=== PATIENT | female | born 1965 | race Caucasian/White ===

== ENCOUNTER 2017-09-17 05:30 | Day surgery (SDC) | payer BC, OTHER ==
[~2017-09-17] VITALS: Ht 165.1 cm; Wt 72.6 kg
[~2017-09-17 05:30] MED LIST: EFFEXOR XR75 MG PO; NORCO 5-325 TA1 EACH PO; NORCO 7.5-3251 EACH PO; TOPROL XL25 MG PO
--- NOTE | 2017-09-17 10:17 | NUR ---
09/17/17 1016 Jen Zhang 0945-PATIENT ARRIVED TO PACU ON 10L MASK O2 SAT 100% NONAROUSABLE ORAL AIRWAY IN PLACE. RN NEEDING TO JAW THRUST TO MAINTAIN OPEN AIRWAY. 1000-PATIENT OPENING EYES. ABLE TO MAINTAIN AIRWAY ORAL AIRWAY REMOVED. 10L M O2 SAT 100%. 3 LAP SITES TO ABDOMEN CDI. ABURTO CATHETER IN PLACE. 1010-PATIENT WEANED TO 6L MASK O2 SAT 100%.
--- NOTE | 2017-09-17 10:52 | NUR ---
PT IS BACK TO DS FROM PACU. PT'S SIGNIFICANT OTHER IS AT THE BEDSIDE. PT REPROTS NO NAUSEA, BUT DOES HAVE PAIN 7/10. SHE REPORTS THE FEELING OF NEEDING TO PEE, SHE KNOWS SHE HAS A CATHETER. NO OTHER C/O'S AT THIS TIME. WILL REASSESS WITHIN THE HOUR. WATER AND CRACKERS AT THE BEDSIDE. CALL LIGHT WITHIN REACH.
[2017-09-17] MEDS ORDERED: IBUPROFEN800 MG PO (11:12)
[2017-09-17] MEDS ORDERED: PERCOCET 5-3251 EACH PO (11:12)
--- NOTE | 2017-09-17 11:52 | NUR ---
PT IS ASLEEP UPON ENTERING THE ROOM. SHE IS ABLE TO WAKE UP AND ANSWER QUESTIONS AND QUICKLY FALLS BACK TO SLEEP. CALL LIGHT WITHIN REACH. SIGNIFICANT OTHER AT THE BEDSIDE. SHE BEEN TOLERATING CRACKERS AND SIPS OF WATER. NO OTHER C/O'S AT THIS TIME. WILL RESSESS WITHIN THE HOUR.
--- NOTE | 2017-09-17 12:50 | NUR ---
PT IS ABLE TO STAND UP AT THE BEDSIDE TO HAVE CATHETER REMOVED. 10CC IS REMOVED FROM ABURTO BALOON, THERE IS 1200ML OF BRIGHT YELLOW URINE IN ABURTO BAG. PT DENIES ANY PAIN WITH REMOVAL. SHE ASKS FROM MORE HARISH CRACKERS, SHE IS ASKED IF SHE WOULD LIKE SOMETHING MORE TO EAT AND SHE REQUESTS CHICKEN NOODLE SOUP AND A GRILLED CHEESE SANDWICH. NO OTHER C/O'S AT THIS TIME.
--- NOTE | 2017-09-17 13:47 | NUR ---
PT HAS FAMILY AT THE BEDSIDE. SHE TOLERATED LUNCH WELL WITHOUT ISSUES. SHE IS C/O THE TIP OF HER TONGUE BEING NUMB. NO C/O'S PAIN OR NAUSEA. CALL LIGHT WITHIN REACH. WILL REASSESS WITHIN THE HOUR.
--- NOTE | 2017-09-17 14:12 | NUR ---
LE 1350: PT UP OOB WITH STANDBY ASSIST TO THE BATHROOM. PT IS ABLE TO VOID 100ML OF BRIGHT YELLOW URINE. SHE IS HELPED BACK TO BED. AT THIS POINT THE PT HAS MET DISCHARGE CRITERIA AND SHE IS ASKED IF SHE FEELS LIKE SHE IS READY TO GO HOME, SHE IS EXCITED AT THIS IDEA AND REQUESTS TO GO HOME. DC INSTRUCTIONS ARE GIVEN AND SHE VERBALIZES UNDERSTANDING.
--- NOTE | 2017-09-18 11:07 | OR ---
[facility] [address], [place] [address] Signed DATE OF OPERATION: 09/17/2017 SURGEON: Jerzy Gonzales MD PRIMARY CARE PHYSICIAN: Phil Steele DO PREOPERATIVE DIAGNOSES: Uterine fibroids and pelvic pain. POSTOPERATIVE DIAGNOSES: Uterine fibroids and pelvic pain. PROCEDURES: Total laparoscopic hysterectomy with bilateral salpingectomy and cystoscopy. SURGEON: Jerzy Gonzales MD. SAUSAGE MAKER: Dr. Rubio. ANESTHESIA: General. ESTIMATED BLOOD LOSS: 75 mL. SPECIMEN: Uterus, both fallopian tubes. DRAINS: Christine to bladder. FINDINGS: Cervix: Large thick closed. Uterus: Enlarged, mostly in AP direction with uterine cavity sounded to 9 cm. There was a large subserosal fundal fibroid approximately 7 cm in diameter at the end of the uterus. The left tube was slightly adherent to the left pelvic sidewall near the fimbriated end. Otherwise normal. The left ovary was normal size and shape without any evidence of endometriosis or adhesions. The right tube was normal length and normal pink fimbriated end and no adhesions. The right ovary was normal in size and shape without any evidence of endometriosis or adhesions. The anterior cul-de-sac was free of any adhesions or masses. Posterior cul-de-sac was free of any adhesions or masses. DESCRIPTION: The patient was brought to the operating room, placed in supine position. After adequate general anesthesia was obtained, she was placed in dorsal lithotomy position, prepped and draped in usual sterile fashion. A Christine catheter was placed in the bladder, a weighted speculum was placed in the vagina and the anterior lip of cervix grasped with a long Allis clamp. Uterine cavity was sounded to 9 cm and then the Gliknikare uterine manipulator Electronically Signed By: JERZY GONZALES MD 09/18/17 1107 PATIENT NAME: DEE STEELE OPERATIVE REPORT DATE OF : 65 PHYSICIAN: JERZY GONZALES MD REPORT #: [id number] REPORT IS CONFIDENTIAL AND NOT TO BE RELEASED WITHOUT AUTHORIZATION [facility] [address], [place] [address] Signed carefully introduced through the cervix into the uterine fundus. The balloon was filled with sterile saline. The Allis clamp and weighted speculum were removed. The cervical cap was slid up the manipulator and pushed up against and around the cervix and then the vaginal cup slid up the manipulator and tightened in place holding the cervical cap around the cervix. Finger palpation confirmed good placement. Attention was then drawn to the abdomen. A small infraumbilical skin incision was made through previous scar after injecting the area with 0.5% Marcaine with epinephrine. The subcutaneous tissue was dissected with Metzenbaum scissors and the fascia grasped with hemostats, elevated, nicked with Metzenbaum scissors and extended in transverse fashion using Metzenbaum scissors. The underlying peritoneum was bluntly entered with finger dissection and retention stitches were placed above and below the incision using 0 Vicryl suture. An S-retractor was inserted into the incision, spun 360 degree fashion verifying good placement in the abdomen and the [place], the Irma cannula and sleeve entered the abdomen and the S-retractor removed. The retention stitches were used to tighten the sleeve in place and the trocar removed. The laparoscope was placed through the sleeve. Under direct visualization, carbon dioxide was used as distending medium. The above findings were noted on the left side approximately a 10 cm lateral to midline and just below the level of the umbilicus, a small skin incision was made after transilluminating the area to avoid the vessels and then injecting the area with 0.5% Marcaine with epinephrine. A bladed 5-mm trocar and sleeve entered the abdomen under direct visualization. Trocar was removed and blunt grasper inserted. On the right side, similar fashion the abdominal wall was transilluminated. The area injected with 0.5% Marcaine with epinephrine. A small skin incision made and then a Veress needle with expandable sleeve entered the abdomen under direct visualization. The 12 mm sleeve with expandable trocar was then placed through the expandable sleeve to stretch the incision open and then the trocar removed and blunt grasper inserted through this side. Then, the entire pelvis was carefully examined. The LigaSure and [place] bipolar forceps were used for all the dissection, cauterizing, and cutting each part. The dissection was started by elevating the left fallopian tube and cauterizing and cutting the tube free starting at the fimbriated end and running down the mesosalpinx to the proximal portion of the tube where the tube was cauterized and cut and across the proximal segment of the tube and the tube was brought out through the right lateral port. The upper pedicle was then cauterized in several places and cut individually dissecting the utero-ovarian ligament, the round ligament, and the upper broad ligament. The anterior and posterior leaves of the broad ligament were then , cauterized, and cut down the side of the broad ligament staying near the uterus and extending to the midline anterior and posterior staying inside of the cervical cap, which could be identified laparoscopically. The exposed uterine vessels were then cauterized and they cauterized in several places and cut at the area of the right inside the cervical cup and the paracervical tissue cauterized and cut dissecting this free down to the vaginal mucosa on the left side. On the right side, the Electronically Signed By: JERZY GONZALES MD 09/18/17 1107 PATIENT NAME: DEE STEELE OPERATIVE REPORT DATE OF : 65 PHYSICIAN: JERZY GONZALES MD REPORT #: [id number] REPORT IS CONFIDENTIAL AND NOT TO BE RELEASED WITHOUT AUTHORIZATION [facility] [address], [place] [address] Signed right fallopian tube was then removed again elevating the tube bring it medially and cauterizing and cutting the mesosalpinx down along the length of the tube and then crossing the fallopian tube in the proximal portion and removing the tube through the right lateral port. The upper pedicle was cauterized and dissected individually cauterizing and cutting the round ligament, the utero-ovarian ligament, the upper broad ligament. Again, the anterior and posterior leaves of broad ligament were , cauterized and cut down and connecting to the previous broad ligament dissection in the midline. Anterior and posterior uterine vessels on this side were identified, cauterized in several places and cut. Again just inside the cervical cap and again the paracervical tissue cauterized and cut freeing down to the level of the vaginal mucosa. The Sonicision was then brought on the operating field. The posterior colpotomy made using the Sonicision in the groove of the cervical cap and then the vaginal mucosa cut in the groove of the surgical cap posterior to anterior on the left side and then posterior to anterior on the right side joining in the midline anteriorly. The cervix was then held in the newly created vaginal opening and held in the opening. The Gliknikare uterine manipulator was removed. The cervix noted to be in the vagina, so this was grasped with a long Allis clamp and the uterus gently and carefully removed through the vagina. The uterus was rather large, but mostly in the anteroposterior direction, so the uterus could be removed. Finally the fibroid did come out without tearing the vaginal opening. The uterus was passed off the table. A sponge filled glove was then placed in the vagina and the abdomen re-insufflated. The entire pelvis was irrigated, suctioned, examined. There were small amount of bleeding at the left angle of the cuff, and this was carefully cauterized with monopolar blunt hook probe and then the area was re-irrigated, suctioned, examined, noted to have good hemostasis. The Endo Stitch with V-Loc suture was then used to close the cuff starting at the right angle at the uterosacral ligament and stitching individually the anterior and posterior edges of the mucosa and pulling the V-Loc suture tie with each bite. The 1st bite did incorporate the small loop in the end of the V-Loc suture. The closure was continued over to the left angle stopping at the left uterosacral ligament and then the closure and then additional bites were then taken back towards the midline to help lock the suture in place. Laparoscopic sutures were then used to cut the suture at the edge of the vaginal mucosa. The entire pelvis was irrigated, suctioned, and examined. There was one small area of bleeding at the right angle just above the vaginal closure. This was cauterized with the LigaSure and bipolar forceps. There was also small amount of bleeding at the left just above the left ovary at the beginning and dissection of the left fallopian tube. This was controlled again with the LigaSure, bipolar cautery forceps. When good hemostasis was obtained, the entire pelvis was again irrigated, suctioned, examined. Noted to have good hemostasis. Evicel was then placed on all the areas of dissection for further hemostasis particularly in the areas that required additional cautery. At this point, again good hemostasis was noted. The gas Electronically Signed By: JERZY GONZALES MD 09/18/17 1107 PATIENT NAME: DEE STEELE OPERATIVE REPORT DATE OF : 65 PHYSICIAN: JERZY GONZALES MD REPORT #: [id number] REPORT IS CONFIDENTIAL AND NOT TO BE RELEASED WITHOUT AUTHORIZATION [facility] [address], [place] [address] Signed was then allowed to escape and the areas noted under low pressure. Again had good hemostasis. At this point, all instruments were removed. The gas allowed to escape. The final sleeve removed. The infraumbilical fascia was closed using running stitch of 0 Vicryl suture. The 2 retention stitches were tied together for further support and 3 skin incisions closed using 4-0 Vicryl suture in the subcuticular stitches. Cystoscopy was then done by filling the bladder with approximately 90 mL of saline and through the Christine using a large syringe and then the Christine catheter removed and the cystoscope carefully introduced into the urethra and entered the bladder under direct visualization. The dome and rest of the bladder were observed which showed no evidence of injury or suture or blood. Both ureters were identified, both showed good strong flow of urine. So cystoscope was removed from the bladder, drained, and the Christine placed back in the bladder. The sponge filled glove was removed from the vagina. The patient tolerated the procedure well, went to recovery room in good condition. The sponge, needle, and instrument count correct at the end of the procedure. Uterus and both fallopian tubes were sent to Pathology for identification. MD HEIKE DuranB/DANIELLEL /[id number] cc: Phil Steele DO Electronically Signed By: JERZY GONZALES MD 09/18/17 1107 PATIENT NAME: DEE STEELE OPERATIVE REPORT DATE OF : 65 PHYSICIAN: JERZY GONZALES MD REPORT #: [id number] REPORT IS CONFIDENTIAL AND NOT TO BE RELEASED WITHOUT AUTHORIZATION
== END 2017-09-17 14:05 | disposition home or self-care (01) ==
LOC: OPS 05:30 → DS 05:30 → OPS 06:45 → DS 10:45 → OPS 14:05
PROVIDERS: General Practice
PROC: 0UT94ZZ Resection of Uterus, Percutaneous Endoscopic Approach (ICD-10-PCS; principal; 2017-09-17 06:45)
PROC: 0UT74ZZ Resection of Bilateral Fallopian Tubes, Percutaneous Endoscopic Approach (ICD-10-PCS; 2017-09-17 06:45)
DX: D25.9 Leiomyoma of uterus, unspecified (principal); B67.99 Other echinococcosis; I10 Essential (primary) hypertension; F41.9 Anxiety disorder, unspecified; I49.9 Cardiac arrhythmia, unspecified; F17.210 Nicotine dependence, cigarettes, uncomplicated; F12.90 Cannabis use, unspecified, uncomplicated; Z79.899 Other long term (current) drug therapy; Z98.890 Other specified postprocedural states
CPT/HCPCS: 00944; J0330; J0690; J1100; J1644; J1885; J2250; J2270; J2405; J2704; J2765; J3010; J7120

== ENCOUNTER 2017-11-01 11:08 | Emergency (ER) | payer BC ==
[~2017-11-01] VITALS: Ht 165.1 cm; Wt 72.6 kg
[~2017-11-01 11:08] MED LIST changes: +IBUPROFEN800 MG PO; +PERCOCET 5-3251 EACH PO
[2017-11-01] MEDS ORDERED: PHENERGAN25 MG PR (16:32)
[2017-11-01] MEDS ORDERED: PROMETHAZINE HC25 M1 PO (16:32)
== END 2017-11-01 16:49 | disposition home or self-care (01) ==
LOC: ED 11:08
DX: R11.2 Nausea with vomiting, unspecified (principal); D72.829 Elevated white blood cell count, unspecified; F41.9 Anxiety disorder, unspecified; F17.200 Nicotine dependence, unspecified, uncomplicated; Z90.710 Acquired absence of both cervix and uterus; Z79.899 Other long term (current) drug therapy
CPT/HCPCS: 70470; 76705; 80053; 81001; 83605; 85025; 96374; 96375; 99284; J2405; J7030; Q9967

== ENCOUNTER 2017-11-06 17:14 | Emergency (ER) | payer BC ==
[~2017-11-06] VITALS: Ht 165.1 cm; Wt 68.0 kg
[~2017-11-06 17:14] MED LIST changes: +PHENERGAN25 MG PR; +PROMETHAZINE HC25 M1 PO
[2017-11-06] MEDS ORDERED: NORCO 5-325 TA1 EACH PO (18:17)
== END 2017-11-06 18:52 | disposition home or self-care (01) ==
LOC: ED 17:14
DX: S20.211A Contusion of right front wall of thorax, initial encounter (principal); F41.9 Anxiety disorder, unspecified; F17.210 Nicotine dependence, cigarettes, uncomplicated; Z90.710 Acquired absence of both cervix and uterus; Z79.899 Other long term (current) drug therapy; W00.0XXA Fall on same level due to ice and snow, initial encounter
CPT/HCPCS: 71101; 99283

== ENCOUNTER 2018-12-30 11:55 | Emergency (ER) | payer OTHER ==
[~2018-12-30] VITALS: Ht 165.1 cm; Wt 68.0 kg
[2018-12-30] MEDS ORDERED: OMEPRAZOLE20 MG PO (15:49)
== END 2018-12-30 16:00 | disposition home or self-care (01) ==
LOC: ED 11:55
DX: K44.9 Diaphragmatic hernia without obstruction or gangrene (principal); F41.9 Anxiety disorder, unspecified; F17.200 Nicotine dependence, unspecified, uncomplicated; Z90.710 Acquired absence of both cervix and uterus
CPT/HCPCS: 36415; 80053; 83690; 85025; 99284; 99406

== ENCOUNTER 2019-01-13 07:27 | Day surgery (SDC) | payer OTHER ==
[~2019-01-13] VITALS: Ht 165.1 cm; Wt 72.1 kg
[~2019-01-13 07:27] MED LIST changes: +OMEPRAZOLE20 MG PO
--- NOTE | 2019-01-13 09:37 | NUR ---
01/13/19 0937 Yanet Pabon 0934 PATIENT ARRIVES TO PACU AWAKE, BUT VERY DROWSY. RESP EVEN AND UNLABORED. PATIENT SLEEPING WITHOUT STIMULATION. NC AT 3 LITERS. ON ARRIVAL, TURNED OFF.
--- NOTE | 2019-01-13 10:47 | OR ---
[facility] [address], [place] [address] Signed DATE OF OPERATION: 01/13/2019 SURGEON: Kaitlin Monteiro MD PREOPERATIVE DIAGNOSES: 1. Epigastric pain. 2. Bloating with nausea and vomiting. 3. Screening. 4. Diverticulosis. 5. Constipation/diarrhea. POSTOPERATIVE DIAGNOSES: 1. Mild diffuse gastritis. 2. Small hiatal hernia. 3. Moderate pandiverticulosis. 4. Minimal to moderate internal and external hemorrhoids. 5. 4 mm polyps x2 at 8 cm. PROCEDURES: 1. EGD with CLOtest and biopsies of the duodenum and antrum. 2. Colonoscopy with hot biopsy and random cold biopsies. ESTIMATED BLOOD LOSS: None. INDICATIONS: Ebony is a 53-year-old female who was asked to see me for both upper and lower endoscopy. I have met her before when I repaired her left inguinal hernia. More recently she has been having significant symptoms as outlined above. She told me she is from [place] and has five children. She is now and will be moving back to [place] this summer. She said her mother has cancer and she is very much looking forward to being with her friends and family in her home country. She has been through quite a bit of testing already. She had a repeat right upper quadrant ultrasound, which showed either two stable small polyps or adherent stones. Her upper GI small bowel follow-through was fine. She had a CT scan in May of 2017, and everything seemed to be fine other than some diverticula in the descending and sigmoid colon. However, at that time, she did have a 6 cm mass in the uterus and so she underwent a hysterectomy for a fibroid tumor with Dr. Gonzales. In the office, I had given her pamphlets on both upper and lower endoscopy. We looked at those together. She understands the nature of the 2 tests along with the risks including, but not limited to gas, bloating, crampy abdominal pain, Electronically Signed By: KAITLIN MONTEIRO MD 01/13/19 1047 PATIENT NAME: EBONY STEELE OPERATIVE REPORT DATE OF : 65 REPORT #: [id number] PHYSICIAN: KAITLIN MONTEIRO MD PCP: KAITLIN SCHROEDER MD REPORT IS CONFIDENTIAL AND NOT TO BE RELEASED WITHOUT AUTHORIZATION [address] [address] Signed bleeding, perforation, requiring surgery, and missed diagnosis. She also understands the need for IV conscious sedation. She had expressed understanding and wished to proceed. PROCEDURE IN DETAIL: Ebony was taken into our endoscopy suite and placed in the supine semi-recumbent position. The posterior oropharynx was anesthetized with lidocaine spray. A bite block was utilized for the case. She was given a total of 14 mg of Versed and 250 mcg of fentanyl to cover both upper and lower endoscopy. She was quite anxious actually for the upper endoscopy. We did utilize a bite block for the upper endoscopy. After this, the adult gastroscope was introduced and advanced out into the third portion of the duodenum under direct visualization of camera without difficulty. We had taken a biopsy of the duodenum because of history of diarrhea. The pyloric bulb was unremarkable. The stomach showed very mild patchy erythematous changes. We went ahead and took a biopsy of the antrum for CLOtest and for pathologic review. The incisura, body, and fundus of the stomach were unremarkable. Upon retroflexion of scope, she does have a small hiatal hernia. There were no gastric or esophageal varices. The scope was withdrawn up through the area of the GE junction, which was compliant without stricture. She has very minimal if any disruption to the Z-line. There was no Franks's mucosa, no distal esophagitis. The middle and upper esophagus were unremarkable. After this, the gas had been suctioned out and the gastroscope removed. Ebony had tolerated her upper endoscopy quite well. Ebony was then rotated into the left lateral decubitus position. She was maintained on IV sedation with Versed and fentanyl. A digital rectal exam was performed and she does have minimal to moderate external hemorrhoids. She has good sphincter tone. The adult colonoscope was introduced and advanced all around into the cecum under direct visualization of the camera without difficulty. She required just a little bit of abdominal counter pressure. Her prep was good. The scope was slowly withdrawn. We could easily see the appendiceal orifice and ileocecal valve. We had taken pictures throughout for photodocumentation. She does have pandiverticulosis. They were moderate in size, moderate in number, and scattered about. As is common, the left side is more so than the right. We did find two small polyps about 8 cm in the rectum. There were easily removed with the help of a hot biopsy forceps. Upon retroflexion of the scope, she does have minimal to moderate internal hemorrhoids as well. After this, the gas was suctioned out and colonoscope removed. Ebony tolerated the lower endoscopy quite well. RECOMMENDATIONS: I will see Ebony back in my office in 7 to 14 days to review her results. Electronically Signed By: KAITLIN MONTEIRO MD 01/13/19 1047 PATIENT NAME: EBONY STEELE OPERATIVE REPORT DATE OF : 65 REPORT #: [id number] PHYSICIAN: KAITLIN MONTEIRO MD PCP: KAITLIN SCHROEDER MD REPORT IS CONFIDENTIAL AND NOT TO BE RELEASED WITHOUT AUTHORIZATION [address] [place] [address] Signed MD LESLIE Osorio/MODL /[id number] cc: MD Dr. Kaitlin Osorio Copies: KAITLIN MONTEIRO MD ~ Electronically Signed By: KAITLIN MONTEIRO MD 01/13/19 1047 PATIENT NAME: EBONY STEELE OPERATIVE REPORT DATE OF : 65 REPORT #: [id number] PHYSICIAN: KAITLIN MONTEIRO MD PCP: KAITLIN SCHROEDER MD REPORT IS CONFIDENTIAL AND NOT TO BE RELEASED WITHOUT AUTHORIZATION
--- NOTE | 2019-01-13 21:15 | EKG ---
[facility] [address] [facility] [place] [address] Signed Normal sinus rhythm Normal ECG When compared with ECG of 15-SEP-2017 14:33, T wave amplitude has decreased in Inferior leads Confirmed by ART OLIVAS MD ([id number]) on 01/13/2019 9:15:34 PM Electronically Signed By: ART OLIVAS MD 01/13/19 2115 PATIENT NAME: DEE STEELE Electrocardiogram DATE OF : 65 PHYSICIAN: ART OLIVAS MD REPORT #: [id number] REPORT IS CONFIDENTIAL AND NOT TO BE RELEASED WITHOUT AUTHORIZATION
== END 2019-01-13 10:15 | disposition home or self-care (01) ==
LOC: DS 07:27 → OPS 07:27 → DS 09:00 → OPS 09:00
PROVIDERS: Colon & Rectal Surgery
PROC: 0DB78ZX Excision of Stomach, Pylorus, Via Natural or Artificial Opening Endoscopic, Diagnostic (ICD-10-PCS; 2019-01-13)
PROC: 0DBP8ZZ Excision of Rectum, Via Natural or Artificial Opening Endoscopic (ICD-10-PCS; principal; 2019-01-13 09:00)
PROC: 0DB98ZX Excision of Duodenum, Via Natural or Artificial Opening Endoscopic, Diagnostic (ICD-10-PCS; 2019-01-13 09:00)
DX: Z12.11 Encounter for screening for malignant neoplasm of colon (principal); D12.8 Benign neoplasm of rectum; K57.30 Diverticulosis of large intestine without perforation or abscess without bleeding; K64.8 Other hemorrhoids; K29.50 Unspecified chronic gastritis without bleeding; K44.9 Diaphragmatic hernia without obstruction or gangrene; I10 Essential (primary) hypertension; K21.9 Gastro-esophageal reflux disease without esophagitis; F32.9 Major depressive disorder, single episode, unspecified; F41.9 Anxiety disorder, unspecified; Z79.899 Other long term (current) drug therapy
CPT/HCPCS: 86677; 93005; 93010; 99153; G0500; J2250; J3010; J7120

== ENCOUNTER 2019-02-12 09:33 | Emergency (ER) | payer OTHER ==
[~2019-02-12] VITALS: Ht 165.1 cm; Wt 72.1 kg
[2019-02-12] MEDS ORDERED: NORCO 5-325 TA1 EACH PO (11:34)
== END 2019-02-12 12:16 | disposition home or self-care (01) ==
LOC: ED 09:33
DX: R07.81 Pleurodynia (principal); J06.9 Acute upper respiratory infection, unspecified; F17.200 Nicotine dependence, unspecified, uncomplicated; Z79.899 Other long term (current) drug therapy
CPT/HCPCS: 71046; 80053; 84484; 85025; 85379; 96374; 96375; 99285-25; J1100; J1885; J2270

== ENCOUNTER 2019-10-01 13:25 | Emergency (ER) | payer OTHER ==
[~2019-10-01] VITALS: Ht 165.1 cm; Wt 72.1 kg
[2019-10-01] MEDS ORDERED: FLAGYL500 MG PO (18:05)
[2019-10-01] MEDS ORDERED: LEVAQUIN750 MG PO (18:05)
[2019-10-01] MEDS ORDERED: ONDANSETRON ODT8 MG PO (18:57)
== END 2019-10-01 20:16 | disposition home or self-care (01) ==
LOC: ED 13:25
DX: K57.32 Diverticulitis of large intestine without perforation or abscess without bleeding (principal); F17.200 Nicotine dependence, unspecified, uncomplicated
CPT/HCPCS: 74177; 80053; 81001; 85025; 96361; 99284-25; J1956; J2405; J7030; Q9967

== ENCOUNTER 2020-04-01 12:27 | Emergency (ER) | payer OTHER ==
[~2020-04-01] VITALS: Ht 165.1 cm; Wt 72.1 kg
--- OUTSIDE RECORDS SUMMARY | ~2020-04-01 | XMS | Encounter Summary ---
Demographics + + + | Address | [address] | | | [place] [address] | + + + | Home Phone | | + + + | Preferred Language | Unknown | + + + | Marital Status | | + + + | Mormonism Affiliation | Unknown | + + + | Race | Unknown | + + + | Ethnic Group | Unknown | + + + Author + + + | Author | [facility] | | | and [place] | + + + | Organization | [facility] | | | and [place] | + + + | Address | Unknown | + + + | Phone | Unavailable | + + + Support + + +---------+ + | Name | Relationship | Address | Phone | + + +---------+ + | Kisha Pearson | ECON | Unknown | | + + +---------+ + Care Team Providers + +------+ + | Care Substation Operator Name | Role | Phone | + +------+ + | Phil Bauer DO | PCP | | + +------+ + Reason for Visit + + + | Reason | Comments | + + + | Swallowing | | | Difficulty | | + + + Encounter Details +--------+ + + + + | Date | Type | Department | Care Team | Description | +--------+ + + + + | 07/24/ | Emergency | [facility] | Jayy Anderson | Dysphagia, | | 2017 | | [facility] | Evelio Mane MD | unspecified type | | | | CENTER [address] | [address] | (Primary Dx) | | | | [place], [place] | [place], [place] | | | | | [address] | [address] | | | | | [phone] | | | +--------+ + + + + Social History + +-------+ +--------+------+ | Tobacco Use | Types | Packs/Day | Years | Date | | | | | Used | | + +-------+ +--------+------+ | Never Assessed | | | | | + +-------+ +--------+------+ + + + | Sex Assigned at | Date Recorded | | | | + + + | Not on file | | + + + + + + + | Job Start Date | Occupation | Industry | + + + + | Not on file | Not on file | Not on file | + + + + + + + + | Travel History | Travel Start | Travel End | + + + + + + | No recent travel history available. | + + documented as of this encounter Last Filed Vital Signs + + + + + | Vital Sign | Reading | Time Taken | Comments | + + + + + | Blood Pressure | 131/71 | 07/24/2017 2:02 PM | | | | | PDT | | + + + + + | Pulse | 75 | 07/24/2017 2:02 PM | | | | | PDT | | + + + + + | Temperature | 36.8 C (98.2 F) | 07/24/2017 12:53 PM | | | | | PDT | | + + + + + | Respiratory Rate | 18 | 07/24/2017 2:02 PM | | | | | PDT | | + + + + + | Oxygen Saturation | 98% | 07/24/2017 2:02 PM | | | | | PDT | | + + + + + | Inhaled Oxygen | - | - | | | Concentration | | | | + + + + + | Weight | 72.6 kg (160 lb) | 07/24/2017 12:53 PM | | | | | PDT | | + + + + + | Height | 165.1 cm (5' 5") | 07/24/2017 12:53 PM | | | | | PDT | | + + + + + | Body Mass Index | 26.63 | 07/24/2017 12:53 PM | | | | | PDT | | + + + + + documented in this encounter Discharge Instructions Instructions Anderson, Jayy Edward Alhaji, MD - 07/24/2017These follow-up with her primary c are physician. If he have ongoing difficulty swallowing you may need to see an ear nose and throat physician. documented in this encounter Medications at Time of Discharge + + + +---------+ + + | Medication | Sig | Dispensed | Refills | Start | End Date | | | | | | Date | | + + + +---------+ + + | LORazepam (ATIVAN) | Take 2-4 tablets by | 15 | 0 | 07/24/20 | | | 0.5 mg tablet | mouth every 8 hours | tablet | | 17 | | | | as needed for | | | | | | | Anxiety. | | | | | + + + +---------+ + + | metoprolol | Take 25 mg by mouth | | 0 | | | | succinate | Daily. | | | | | | (TOPROL-XL) 25 mg 24 | | | | | | | hr tablet | | | | | | + + + +---------+ + + | venlafaxine | Take 100 mg by mouth | | 0 | | | | (EFFEXOR) 100 MG | Daily. | | | | | | tablet | | | | | | + + + +---------+ + + documented as of this encounter Plan of Treatment Not on filedocumented as of this encounter Procedures + +--------+ + + + | Procedure Name | Priori | Date/Time | Associated Diagnosis | Comments | | | ty | | | | + +--------+ + + + | CBC WITH | STAT | 07/24/2017 | | Results for this | | DIFFERENTIAL | | 2:01 PM | | procedure are in the | | | | PDT | | results section. | + +--------+ + + + | TSH | STAT | 07/24/2017 | | Results for this | | | | 2:01 PM | | procedure are in the | | | | PDT | | results section. | + +--------+ + + + | BASIC METABOLIC | STAT | 07/24/2017 | | Results for this | | PANEL | | 2:01 PM | | procedure are in the | | | | PDT | | results section. | + +--------+ + + + | CT SOFT TISSUE NECK | STAT | 07/24/2017 | | Results for this | | W CONTRAST | | 1:48 PM | | procedure are in the | | | | PDT | | results section. | + +--------+ + + + documented in this encounter Results TSH (07/24/2017 2:01 PM PDT) + + + + + + | Component | Value | Ref Range | Performed | Pathologist | | | | | At | Signature | + + + + + + | TSH | 1.39Comment: All TSH | 0.34 - 5.60 | [facility] | | | | samples are screened | uIU/mL | [facility] | | | | using a 2nd Generation | | MEDICAL | | | | test, and are reflexed | | CENTER - | | | | to a 3rd Generation test | | LABORATORY | | | | if indicated. | | | | + + + + + + + + | Specimen | + + | Blood | + + + + + + + | Performing | Address | City/State/Zipcode | Phone Number | | Organization | | | | + + + + + | [facility] | [address] | [place] | [phone] | | [facility] | | [address] | | | - LABORATORY | | | | + + + + + Basic Metabolic Panel (07/24/2017 2:01 PM PDT) + + + + + + | Component | Value | Ref Range | Performed | Pathologist | | | | | At | Signature | + + + + + + | Na | 135 (L) | 136 - 149 | [facility] | | | | | mmol/L | [facility] | | | | | | MEDICAL | | | | | | CENTER - | | | | | | LABORATORY | | + + + + + + | K | 3.2 (L) | 3.5 - 5.1 | [facility] | | | | | mmol/L | [facility] | | | | | | MEDICAL | | | | | | CENTER - | | | | | | LABORATORY | | + + + + + + | Cl | 103 | 98 - 109 mmol/L | [facility] | | | | | | [facility] | | | | | | MEDICAL | | | | | | CENTER - | | | | | | LABORATORY | | + + + + + + | CO2 | 26 | 24 - 31 mmol/L | [facility] | | | | | | [facility] | | | | | | MEDICAL | | | | | | CENTER - | | | | | | LABORATORY | | + + + + + + | Anion Gap | 6 | 3 - 16 mmol/L | [facility] | | | | | | [facility] | | | | | | MEDICAL | | | | | | CENTER - | | | | | | LABORATORY | | + + + + + + | Glucose | 97 | 70 - 109 mg/dL | [facility] | | | | | | [facility] | | | | | | MEDICAL | | | | | | CENTER - | | | | | | LABORATORY | | + + + + + + | BUN | 7 | 7 - 18 mg/dL | [facility] | | | | | | [facility] | | | | | | MEDICAL | | | | | | CENTER - | | | | | | LABORATORY | | + + + + + + | Creatinine | 0.53 (L) | 0.60 - 1.30 | [facility] | | | | | mg/dL | [facility] | | | | | | MEDICAL | | | | | | CENTER - | | | | | | LABORATORY | | + + + + + + | eGFR if not | >60Comment: GLOMERULAR | >=60 | [facility] | | | | FILTRATION | mL/min/1.73m2 | [facility] | | | URUGUAYAN | RATE,ESTIMATED | | MEDICAL | | | | mL/min/1.34z1Dnmg than | | CENTER - | | | | 60 Chronic kidney | | LABORATORY | | | | disease,if found over a | | | | | | 3-month period.Less than | | | | | | 15 Kidney failureFor | | | | | | | | | | | | Americans,multiply the | | | | | | calculated GFR by 1.21. | | | | | | | | | | + + + + + + | Calcium | 9.1 | 8.3 - 10.5 | [facility] | | | | | mg/dL | [facility] | | | | | | MEDICAL | | | | | | CENTER - | | | | | | LABORATORY | | + + + + + + | BUN/Creatin | 13.2 | | [facility] | | | ine Ratio | | | [facility] | | | | | | MEDICAL | | | | | | CENTER - | | | | | | LABORATORY | | + + + + + + + + | Specimen | + + | Blood | + + + + + + + | Performing | Address | City/State/Zipcode | Phone Number | | Organization | | | | + + + + + | [facility] | [address] | [place] | [phone] | | [facility] | | [address] | | | - LABORATORY | | | | + + + + + CBC with Differential (07/24/2017 2:01 PM PDT) + + + + + + | Component | Value | Ref Range | Performed | Pathologist | | | | | At | Signature | + + + + + + | WBC | 8.0 | 4.0 - 11.0 K/uL | [facility] | | | | | | [facility] | | | | | | MEDICAL | | | | | | CENTER - | | | | | | LABORATORY | | + + + + + + | RBC | 4.12 | 3.70 - 5.20 | [facility] | | | | | M/uL | [facility] | | | | | | MEDICAL | | | | | | CENTER - | | | | | | LABORATORY | | + + + + + + | Hemoglobin | 11.5 | 11.5 - 16.0 | [facility] | | | | | g/dL | [facility] | | | | | | MEDICAL | | | | | | CENTER - | | | | | | LABORATORY | | + + + + + + | Hematocrit | 34.6 | 34.0 - 47.0 % | [facility] | | | | | | [facility] | | | | | | MEDICAL | | | | | | CENTER - | | | | | | LABORATORY | | + + + + + + | MCV | 83.9 | 83.0 - 101.0 fL | [facility] | | | | | | [facility] | | | | | | MEDICAL | | | | | | CENTER - | | | | | | LABORATORY | | + + + + + + | MCH | 27.9 (L) | 28.0 - 35.0 pg | [facility] | | | | | | [facility] | | | | | | MEDICAL | | | | | | CENTER - | | | | | | LABORATORY | | + + + + + + | MCHC | 33.3 | 32.0 - 36.0 | [facility] | | | | | g/dL | [facility] | | | | | | MEDICAL | | | | | | CENTER - | | | | | | LABORATORY | | + + + + + + | RDW-CV | 16.1 (H) | <15.0 % | [facility] | | | | | | [facility] | | | | | | MEDICAL | | | | | | CENTER - | | | | | | LABORATORY | | + + + + + + | Platelet | 257 | 140 - 440 K/uL | [facility] | | | Count | | | [facility] | | | | | | MEDICAL | | | | | | CENTER - | | | | | | LABORATORY | | + + + + + + | MPV | 8.8 | fL | [facility] | | | | | | [facility] | | | | | | MEDICAL | | | | | | CENTER - | | | | | | LABORATORY | | + + + + + + | % | 61.8 | 45.0 - 82.0 % | [facility] | | | Neutrophils | | | [facility] | | | | | | MEDICAL | | | | | | CENTER - | | | | | | LABORATORY | | + + + + + + | % | 28.8 | 20.0 - 45.0 % | [facility] | | | Lymphocytes | | | [facility] | | | | | | MEDICAL | | | | | | CENTER - | | | | | | LABORATORY | | + + + + + + | % Monocytes | 7.9 | 4.0 - 12.0 % | [facility] | | | | | | [facility] | | | | | | MEDICAL | | | | | | CENTER - | | | | | | LABORATORY | | + + + + + + | % | 0.8 | 0.0 - 5.0 % | [facility] | | | Eosinophils | | | [facility] | | | | | | MEDICAL | | | | | | CENTER - | | | | | | LABORATORY | | + + + + + + | % Basophils | 0.7 | 0.0 - 1.0 % | [facility] | | | | | | [facility] | | | | | | MEDICAL | | | | | | CENTER - | | | | | | LABORATORY | | + + + + + + | Absolute | 4.90 | 1.80 - 8.50 | [facility] | | | Neutrophils | | K/uL | [facility] | | | | | | MEDICAL | | | | | | CENTER - | | | | | | LABORATORY | | + + + + + + | Absolute | 2.30 | 0.60 - 3.20 | [facility] | | | Lymphocytes | | K/uL | [facility] | | | | | | MEDICAL | | | | | | CENTER - | | | | | | LABORATORY | | + + + + + + | Absolute | 0.60 | 0.00 - 1.00 | [facility] | | | Monocytes | | K/uL | [facility] | | | | | | MEDICAL | | | | | | CENTER - | | | | | | LABORATORY | | + + + + + + | Absolute | 0.10 | 0.00 - 0.40 | [facility] | | | Eosinophils | | K/uL | [facility] | | | | | | MEDICAL | | | | | | CENTER - | | | | | | LABORATORY | | + + + + + + | Absolute | 0.10 | 0.00 - 0.10 | [facility] | | | Basophils | | K/uL | [facility] | | | | | | MEDICAL | | | | | | CENTER - | | | | | | LABORATORY | | + + + + + + + + | Specimen | + + | Blood | + + + + + + + | Performing | Address | City/State[facility] | Phone Number | | Organization | | | | + + + + + | [facility] | [address] | [place] | [phone] | | [facility] | | [address] | | | - LABORATORY | | | | + + + + + CT Soft Tissue Neck w Contrast (07/24/2017 1:48 PM PDT) + + | Specimen | + + | | + + + + + | Narrative | Performed At | + + + | ENHANCED CT SOFT TISSUE NECK 07/24/2017 1:46 PM CLINICAL | [facility] | | HISTORY: SWALLOWING DIFFICULTY COMPARISON: None available | | | TECHNIQUE: Axial images are performed through the neck following | | | the uneventful intravenous administration of 75 mL Omnipaque 350 | | | contrast. Coronal and sagittal reformations are also performed. | | | FINDINGS: Allowing for artifact arising from dental hardware, the | | | pharynx, larynx, and imaged trachea are unremarkable, along with the | | | thyroid, submandibular and parotid glands. No mass, fluid | | | collection, inflammation or adenopathy is apparent. The imaged | | | upper to mid esophagus contains a small volume of gas but is | | | otherwise unremarkable. No foreign body is visible. The cervical | | | vasculature is widely patent. There is minimal mucus membrane | | | thickening inferiorly in the imaged maxillary sinuses. There is | | | straightening of the cervical lordosis and early multilevel | | | spondylosis. Osseous structures are otherwise unremarkable, along | | | with the imaged brain and upper chest. IMPRESSION - 1. NO | | | VISIBLE MASS OR OTHER SUSPICIOUS TISSUE ABNORMALITY. 2. | | | STRAIGHTENING OF THE CERVICAL LORDOSIS. Images were provided for | | | interpretation on July 24, 2017 1350 hours. Results were | | | finalized at 1410 hours. Dictated and Signed by: Sim Flores MD | | | Electronically signed: 07/24/2017 2:08 PM | | + + + + + | Procedure Note | + + | Jae, Rad Results In - 07/24/2017 2:12 PM [address] SOFT TISSUE NECK 07/24/2017 | | 1:46 PM CLINICAL HISTORY: SWALLOWING DIFFICULTY COMPARISON: None available | | TECHNIQUE: Axial images are performed through the neck following the | | uneventfulintravenous administration of 75 mL Omnipaque 350 contrast. Coronal | | andsagittal reformations are also performed. FINDINGS: Allowing for artifact arising | | from dental hardware, the pharynx,larynx, and imaged trachea are unremarkable, along | | with the thyroid,submandibular and parotid glands. No mass, fluid collection, | | inflammation oradenopathy is apparent. The imaged upper to mid esophagus contains a | | smallvolume of gas but is otherwise unremarkable. No foreign body is visible. | | Thecervical vasculature is widely patent. There is minimal mucus membranethickening | | inferiorly in the imaged maxillary sinuses. There is straighteningof the cervical | | lordosis and early multilevel spondylosis. Osseous structuresare otherwise | | unremarkable, along with the imaged brain and upper chest.IMPRESSION - 1. NO VISIBLE | | MASS OR OTHER SUSPICIOUS TISSUE ABNORMALITY.2. STRAIGHTENING OF THE CERVICAL | | LORDOSIS.Images were provided for interpretation on July 24, 2017 1350 hours. | | Results were finalized at 1410 hours.Dictated and Signed by: Sim Flores MD | | Electronically signed: 07/24/2017 2:08 PM | |of the cervical lordosis and early multilevel spondylosis. Osseous structures | |are otherwise unremarkable, along with the imaged brain and upper chest. | | | |IMPRESSION - | |1. NO VISIBLE MASS OR OTHER SUSPICIOUS TISSUE ABNORMALITY. | | | |2. STRAIGHTENING OF THE CERVICAL LORDOSIS. | | | |Images were provided for interpretation on July 24, 2017 1350 hours. | |Results were finalized at 1410 hours. | | | |Dictated and Signed by: Sim Flores MD | | Electronically signed: 07/24/2017 2:08 PM | + + + +---------+ + + | Performing | Address | City/State/Zipcode | Phone Number | | Organization | | | | + +---------+ + + | [facility] | | | | + +---------+ + + documented in this encounter Visit Diagnoses + + | Diagnosis | + + | Dysphagia, unspecified type - Primary | + + documented in this encounter Administered Medications + +--------+ +--------+------+------+ | Medication Order | MAR | Action | Dose | Rate | Site | | | Action | Date | | | | + +--------+ +--------+------+------+ | aluminum & magnesium | Given | 07/24/20 | 30 mLs | | | | hydroxide-simethicone (MAALOX | | 17 1:13 | | | | | PLUS REGULAR STRENGTH) 200-200-20 | | PM PDT | | | | | mg/5 mL suspension 30 mL 30 mL, | | | | | | | Oral, ONCE PRN, Indigestion, | | | | | | | Pain, Starting 07/24/17 at | | | | | | | 1250, For 1 dose, Mix lidocaine | | | | | | | and Maalox. Shake well., | | | | | | + +--------+ +--------+------+------+ +---+---+ | | | +---+---+ + +-------+ +--------+---+---+ | iohexol (OMNIPAQUE 350) 350 | Given | 07/24/20 | 75 mLs | | | | mg/mL injection 75 mL 75 mL, | | 17 1:48 | | | | | Intravenous, ONCE PRN, Other, | | PM PDT | | | | | Starting 07/24/17 at 1348, For | | | | | | | 1 dose, Cat Scanner | | | | | | + +-------+ +--------+---+---+ +---+---+ | | | +---+---+ + +-------+ +--------+---+---+ | lidocaine (XYLOCAINE) 2% | Given | 07/24/20 | 10 mLs | | | | viscous solution 10 mL 10 mL, | | 17 1:13 | | | | | Oral, ONCE PRN, Pain, Starting | | PM PDT | | | | | 07/24/17 at 1250, For 1 dose, | | | | | | | Mix lidocaine and MAALOX. [place] | | | | | | | well., | | | | | | + +-------+ +--------+---+---+ +---+---+ | | | +---+---+ + +-------+ +------+---+---+ | LORazepam (ATIVAN) injection 1 | Given | 07/24/20 | 1 mg | | | | mg 1 mg, Intravenous, ONCE, Thu | | 17 1:57 | | | | | 07/24/17 at 1325, For 1 dose | | PM PDT | | | | + +-------+ +------+---+---+ +---+---+ | | | +---+---+ documented in this encounter
--- OUTSIDE RECORDS SUMMARY | ~2020-04-01 | XMS | Clinical Summary ---
Demographics + + + | Address | [address] | | | [place] [address] | + + + | Home Phone | | + + + | Preferred Language | Unknown | + + + | Marital Status | | + + + | Yarsanism Affiliation | Unknown | + + + | Race | Unknown | + + + | Ethnic Group | Unknown | + + + Author + + + | Author | [facility] | | | and [place] | + + + | Organization | [facility] | | | and [...] Team Providers + +------+ + | Care Laundry Helper Name | Role | Phone | + +------+ + | Phil Bauer DO | PCP | | + +------+ + Allergies No Known Allergies Medications + + + +---------+------+------+-------+ | Medication | Sig | Dispensed | Refills | Star | End | Statu | | | | | | t | Date | s | | | | | | Date | | | + + + +---------+------+------+-------+ | venlafaxine | Take 100 mg by mouth | | 0 | | | Activ | | (EFFEXOR) 100 MG | Daily. | | | | | e | | tablet | | | | | | | + + + +---------+------+------+-------+ | metoprolol | Take 25 mg by mouth | | 0 | | | Activ | | succinate | Daily. | | | | | e | | (TOPROL-XL) 25 mg 24 | | | | | | | | hr tablet | | | | | | | + + + +---------+------+------+-------+ | LORazepam (ATIVAN) | Take 2-4 tablets by | 15 | 0 | 09/2 | | Activ | | 0.5 mg tablet | mouth every 8 hours | tablet | | 2/20 | | e | | | as needed for | | | 17 | | | | | Anxiety. | | | | | | + + + +---------+------+------+-------+ | | Take 1 tablet by | 30 | 0 | 01/1 | | Activ | | HYDROcodone-acetamin | mouth every 6 hours | tablet | | 7/20 | | e | | ophen (NORCO) 5-325 | as needed for Pain. | | | 18 | | | | mg per tablet | | | | | | | + + + +---------+------+------+-------+ | lidocaine | Place 1 patch onto | 30 | 0 | 01/1 | | Activ | | (LIDODERM) 5% patch | the skin Daily. | patch | | 7/20 | | e | | | Apply for 12 hours, | | | 18 | | | | | then remove for 12 | | | | | | | | hours. | | | | | | + + + +---------+------+------+-------+ | indomethacin | Take 1 capsule by | 20 | 0 | 01/1 | | Activ | | (INDOCIN) 25 mg | mouth 2 times daily | capsule | | 7/20 | | e | | capsule | (with breakfast & | | | 18 | | | | | dinner). | | | | | | + + + +---------+------+------+-------+ Active Problems Not on file Social History + +-------+ +--------+------+ | Tobacco [...] recent travel history available. | + + Last Filed Vital Signs + + + + + | Vital Sign | Reading | Time Taken | Comments | + + + + + | Blood Pressure | 117/79 | 11/18/2017 12:16 PM | | | | | PST | | + + + + + | Pulse | 85 | 11/18/2017 12:16 PM | | | | | PST | | + + + + + | Temperature | 36.3 C (97.4 F) | 11/18/2017 12:16 PM | | | | | PST | | + + + + + | Respiratory Rate | 16 | 11/18/2017 12:16 PM | | | | | PST | | + + + + + | Oxygen Saturation | 100% | 11/18/2017 12:16 PM | | | | | PST | | + + + + + | Inhaled Oxygen | - | - | | | Concentration | | | | + + + + + | Weight | 71.7 kg (158 lb) | 11/18/2017 12:16 PM | | | | | PST | | + + + + + | Height | 165.1 cm (5' 5") | 11/18/2017 12:16 PM | | | | | PST | | + + + + + | Body Mass Index | 26.29 | 11/18/2017 12:16 PM | | | | | PST | | + + + + + Plan of Treatment + + + + + | Health Maintenance | Due Date | Last Done | Comments | + + + + + | Vaccine: | | 04/28/2018 | | | Dtap/Tdap/Td (1 - | 6 | | | | Tdap) | | | | + + + + + | Cervical Cancer | | | | | Screening (Pap) | 5 | | | + + + + + | Vaccine: Zoster (1 | | | | | of 2) | 5 | | | + + + + + | Breast Cancer | | 04/14/2017, 03/04/2005 | | | Screening | 8 | | | + + + + + | Vaccine: Influenza | | | | | (Season Ended) | 0 | | | + + + + + Results Not on filefrom Last 3 Months Insurance +-------+--------+ +--------+-------+---------+------+ | Payer | Benefi | Subscriber | Effect | Phone | Address | Type | | | t Plan | ID | radha | | | | | | / | | Dates | | | | | | Group | | | | | | +-------+--------+ +--------+-------+---------+------+ | BCBS | BCBS | [id number] | 03/02/20 | | | PPO | | | [employer] | | 17-Pre | | | | | | L FEP | | sent | | | | +-------+--------+ +--------+-------+---------+------+ + +--------+ +--------+ + + | Guarantor Name | Accoun | Relation to | Date | Phone | Billing Address | | | t Type | Patient | of | | | | | | | | | | + +--------+ +--------+ + + | Ebony Bauer | Person | Self | [birth year] | [address] | | | al/Fam | | 1965 | [phone] | [place] [address] | | | nemo | | | 4 (Home) | | + +--------+ +--------+ + + Advance Directives + + + + + | Type | Date Recorded | Patient | Explanation | | | | Global Process Owner | | + + + + + | Power of | | | | | Top Closer | | | | + + + + + | Advance | | | | | Directive | | | | + + + + +
--- OUTSIDE RECORDS SUMMARY | ~2020-04-01 | XMS | Encounter Summary ---
Demographics + + + | Address | [address] | | | [place] [address] | + + + | Home Phone | | + + + | Preferred Language | Unknown | + + + | Marital Status | | + + + | Taoist Affiliation | Unknown | + + + | Race | Unknown | + + + | Ethnic Group | Unknown | + + + Author + + + | Author | [facility] | | | and [place] | + + + | Organization | [facility] | | | [...] Team Providers + +------+ + | Care Mechanical Project Manager Name | Role | Phone | + +------+ + | Phil Bauer DO | PCP | | + +------+ + Encounter Details +--------+ + + + + | Date | Type | Department | Care Team | Description | +--------+ + + + + | 10/21/ | Imaging | [facility] | Provider, | | | 2019 | Exam | [facility] | [address] | | | | | IMAG[facility] [address] | [address] | | | | | [address] | [place] [address] | | | | | [place] [address] | | | | | | [phone] | | | +--------+ + + + [...] | + +--------+ + + + | [facility] | Routin | 04/14/2017 | | Results for this | | SCREENING BILATERAL | e | 12:00 AM | | procedure are in the | | | | PDT | | results section. | + +--------+ + + + documented in this encounter Results ADAM Tomosynthesis Screening Bilateral (04/14/2017 12:00 AM PDT) + + | Specimen | + + | | + + + + + | Narrative | Performed At | + + + | External films for comparison only | [facility] | | | | | No results will be in the chart. | | + + + + +---------+ + + | Performing | Address | City/State/Zipcode | Phone Number | | Organization | | | | + +---------+ + + | [facility] | | | | + +---------+ + + documented in this encounter Visit Diagnoses Not on filedocumented in this encounter"
--- OUTSIDE RECORDS SUMMARY | ~2020-04-01 | XMS | Clinical Summary ---
Demographics + + + | Address | [address] | | | [place] [address] | + + + | Home Phone | | + + + | Preferred Language | Unknown | + + + | Marital Status | | + + + | Christianity Affiliation | Unknown | + + + | Race | Unknown | + + + | Ethnic Group | Unknown | + + + Author + + + | Author | [facility] | | | and [place] | + + + | Organization | [facility] | | | and [...] Team Providers + +------+ + | Care Net Developer Contract Name | Role | Phone | + [...] +-------+--------+ +--------+-------+---------+------+ | BCBS | BCBS | [id number] | 03/02/20 | | | PPO | [...] Person | Self | [birth year] | [address] | | | al/Fam | | 1965 | [phone] | [place] [address] | | | nemo | | | 4 (Home) | | + +--------+ +--------+ + + Advance Directives + + + + + | Type | Date Recorded | Patient | Explanation | | | | Pl Sql Programmer | | + + + + + | Power of | | | | | Fan Blade Aligner | | | | + + + + + | Advance | | | | | Directive | | | | + + + + +
--- OUTSIDE RECORDS SUMMARY | ~2020-04-01 | XMS | Encounter Summary ---
Demographics + + + | Address | [address] | | | [place] [address] | + + + | Home Phone | | + + + | Preferred Language | Unknown | + + + | Marital Status | | + + + | Yazidi Affiliation | Unknown | + + + | Race | Unknown | + + + | Ethnic Group | Unknown | + + + Author + + + | Author | [facility] | | | and [place] | + + + | Organization | [facility] | | | and [...] Team Providers + +------+ + | Care Kiln Setter Name | Role | Phone | + +------+ + | Phil Bauer DO | PCP | | + +------+ + Reason for Visit + + + | Reason | Comments | + + + | Rib Pain | | + + + Encounter Details +--------+ + + + + | Date | Type | Department | Care Team | Description | +--------+ + + + + | 11/18/ | Emergency | [facility] | Evelio Tineo | Closed fracture of | | 2018 | | [facility] | MD [address] | multiple ribs of | | | | CENTER [address] | [address] [place] | right side, initial | | | | [place], [place] | [place] [address] | encounter (Primary | | | | [phone] | [phone] | Dx) | | | | [phone] | | | +--------+ + + + [...] documented in this encounter Discharge Instructions Instructions Renetta Ojeda RN - 11/18/2017 AttachmentsThe following attachments cannot be sent through Care Everywhere.Rib Fracture (Teresa michelle)documented in this encounter Medications at Time of Discharge + + + +---------+ + + | Medication | Sig | Dispensed | Refills | Start | End Date | | | | | | Date | | + + + +---------+ + + | | Take 1 tablet by | 30 | 0 | 11/18/19 | | | HYDROcodone-acetamin | mouth every 6 hours | tablet | | 18 | | | ophen (NORCO) 5-325 | as needed for Pain. | | | | | | mg per tablet | | | | | | + + + +---------+ + + | indomethacin | Take 1 capsule by | 20 | 0 | 11/18/19 | | | (INDOCIN) 25 mg | mouth 2 times daily | capsule | | 18 | | | capsule | (with breakfast & | | | | | | | dinner). | | | | | + + + +---------+ + + | lidocaine | Place 1 patch onto | 30 | 0 | 11/18/19 | | | (LIDODERM) 5% patch | the skin Daily. | patch | | 18 | | | | Apply for 12 hours, | | | | | | | then remove for 12 | | | | | | | hours. | | | | | + + [...] Not on filedocumented as of this encounter Visit Diagnoses + + | Diagnosis | + + | Closed fracture of multiple ribs of right side, initial encounter - Primary | + + documented in this encounter Administered Medications + +--------+ +---------+------+------+ | Medication Order | MAR | Action | Dose | Rate | Site | | | Action | Date | | | | + +--------+ +---------+------+------+ | HYDROcodone-acetaminophen | Given | 11/18/19 | 2 | | | | (NORCO) 5-325 mg per tablet 2 | | 18 12:51 | tablets | | | | tablet 2 tablet, Oral, ONCE, Wed | | PM PST | | | | | 11/18/17 at 1250, For 1 dose | | | | | | + +--------+ +---------+------+------+ +---+---+ | | | +---+---+ documented in this encounter
--- OUTSIDE RECORDS SUMMARY | ~2020-04-01 | XMS | Encounter Summary ---
Demographics + + + | Address | [address] | | | [place] [address] | + + + | Home Phone | | + + + | Preferred Language | Unknown | + + + | Marital Status | | + + + | Yarsani Affiliation | Unknown | + + + | Race | Unknown | + + + | Ethnic Group | Unknown | + + + Author + + + | Author | [facility] | | | and [place] | + + + | Organization | [facility] | | | [...] Team Providers + +------+ + | Care Traffic Worker Name | Role | Phone | + [...] | | | | CENTER [address] | [address] | (Primary Dx) | | | | [place], [place] | [place], [place] | | | | | [address] | [address] | | | | | [phone] | | | +--------+ + + + [...] + | [facility] | [address] | [place] | [phone] | | [facility] | | [address] | | | - LABORATORY | | [...] mL/min/1.73m2 | [facility] | | | ESTONIAN | RATE,ESTIMATED | | MEDICAL | | | | mL/min/1.72n6Zwih than | | CENTER - | | [...] [address] | [place] | [phone] | | [facility] | | [address] | | | - LABORATORY | | [...] | Basophils | | K/uL | [facility] | | | | | | MEDICAL | | | | | | CENTER - | | | | | | LABORATORY | | + + + + + + + + | Specimen | + + | Blood | + + + + + + + | Performing | Address | City/State/[facility] | Phone Number | | Organization | | | | + + + + + | [facility] | [address] | [place] | [phone] | | [facility] | | [address] | | | - LABORATORY | | [...]
--- OUTSIDE RECORDS SUMMARY | ~2020-04-01 | XMS | Encounter Summary ---
Demographics + + + | Address | [address] | | | [place] [address] | + + + | Home Phone | | + + + | Preferred Language | Unknown | + + + | Marital Status | | + + + | Episcopal Affiliation | Unknown | + + + | Race | Unknown | + + + | Ethnic Group | Unknown | + + + Author + + + | Author | [facility] | | | and [place] | + + + | Organization | [facility] | | [...] Team Providers + +------+ + | Care Ticket Worker Name | Role | Phone | [...] | [facility] | [address] | | | | | IMAGING [address] | [address] | | | | | [place] | [place] [address] | | | | | [place] [address] | | | | | | [phone] | | | +--------+ + + + [...]
--- OUTSIDE RECORDS SUMMARY | ~2020-04-01 | XMS | Encounter Summary ---
Demographics + + + | Address | [address] | | | [place] [address] | + + + | Home Phone | | + + + | Preferred Language | Unknown | + + + | Marital Status | | + + + | Yazidism Affiliation | Unknown | + + + | Race | Unknown | + + + | Ethnic Group | Unknown | + + + Author + + + | Author | [facility] | | | and [place] | + + + | Organization | [facility] | | [...] Team Providers + +------+ + | Care Commercial Driver'S License Driver Name | Role | Phone | + [...] | [facility] | [address] | | | | | IMAGING [address] | [address] | | | | | [place] | [place] [address] | | | | | [place] [address] | | | | | | [phone] | | | +--------+ + + + [...] + +--------+ + + + | ADAM DIGITAL | Routin | 03/04/2005 | | Results for this | | SCREENING BILATERAL | e | 12:00 AM | | procedure are in the | | | | PDT | | results section. | + +--------+ + + + documented in this encounter Results ADAM Digital Screening Bilateral (03/04/2005 12:00 AM PDT) + + | Specimen [...]
--- OUTSIDE RECORDS SUMMARY | ~2020-04-01 | XMS | Encounter Summary ---
Demographics + + + | Address | [address] | | | [place] [address] | + + + | Home Phone | | + + + | Preferred Language | Unknown | + + + | Marital Status | | + + + | Hindu Affiliation | Unknown | + + + | Race | Unknown | + + + | Ethnic Group | Unknown | + + + Author + + + | Author | [facility] | | | and [place] | + + + | Organization | [facility] | | [...] Team Providers + +------+ + | Care Risk Manager Name | Role | Phone | [...] | [facility] | [address] | | | | | IMAGING [address] | [address] | | | | | [place] [address] | [place] [address] | | | | | [place] [address] | | | | | | [phone] | | | +--------+ + + + [...]
--- OUTSIDE RECORDS SUMMARY | ~2020-04-01 | XMS | Encounter Summary ---
Demographics + + + | Address | [address] | | | [place] [address] | + + + | Home Phone | | + + + | Preferred Language | Unknown | + + + | Marital Status | | + + + | Temple Affiliation | Unknown | + + + | Race | Unknown | + + + | Ethnic Group | Unknown | + + + Author + + + | Author | [facility] | | | and [place] | + + + | Organization | [facility] | | [...] Team Providers + +------+ + | Care Line Prep Cook Name | Role | Phone | + [...] | | | | CENTER [address] | [address] [place] | right side, initial | | | | [place], [place] | [place] [address] | encounter (Primary | | | | [address] | [phone] | Dx) | | | | [phone] | | | +--------+ + + + [...]
[~2020-04-01 12:27] MED LIST changes: +FLAGYL500 MG PO; +LEVAQUIN750 MG PO; +ONDANSETRON ODT8 MG PO
== END 2020-04-01 13:25 | disposition home or self-care (01) ==
LOC: ED 12:27
DX: S61.230A Puncture wound without foreign body of right index finger without damage to nail, initial encounter (principal); F41.9 Anxiety disorder, unspecified; F17.200 Nicotine dependence, unspecified, uncomplicated; W26.8XXA Contact with other sharp object(s), not elsewhere classified, initial encounter
CPT/HCPCS: 84460; 86703; 86707; 86803; 87350; 99283

== ENCOUNTER 2020-05-21 01:18 | Emergency (ER) | payer BC, OTHER ==
[~2020-05-21] VITALS: Ht 165.1 cm; Wt 72.1 kg
--- NOTE | 2020-05-21 10:28 | EKG ---
[facility] [address] [facility] [place] [address] Signed Normal sinus rhythm Possible Left atrial enlargement Borderline ECG When compared with ECG of 13-JAN-2019 07:40, No significant change was found Confirmed by ART OLIVAS MD ([id number]) on 05/21/2020 10:28:06 AM Electronically Signed By: ART OLIVAS MD 05/21/20 1028 PATIENT NAME: DEE STEELE Electrocardiogram DATE OF : 65 PHYSICIAN: ART OLIVAS MD REPORT #: [id number] REPORT IS CONFIDENTIAL AND NOT TO BE RELEASED WITHOUT AUTHORIZATION
== END 2020-05-21 05:03 | disposition home or self-care (01) ==
LOC: ED 01:18
DX: R07.89 Other chest pain (principal); R00.2 Palpitations; F41.9 Anxiety disorder, unspecified; F17.200 Nicotine dependence, unspecified, uncomplicated; Z79.899 Other long term (current) drug therapy
CPT/HCPCS: 71045; 80053; 83735; 84443; 84484; 85025; 85379; 93005; 93010; 99285-25

== ENCOUNTER 2021-03-17 13:01 | Emergency (ER) | payer BC, OTHER ==
[~2021-03-17] VITALS: Ht 165.1 cm; Wt 80.3 kg
[2021-03-17] MEDS ORDERED: PREDNISONE20 MG PO (15:03)
[2021-03-17] MEDS ORDERED: HYDROCODON-ACE1 EA10 PO (15:03)
== END 2021-03-17 15:14 | disposition home or self-care (01) ==
LOC: ED 13:01
DX: M62.830 Muscle spasm of back (principal); F17.200 Nicotine dependence, unspecified, uncomplicated; Z79.899 Other long term (current) drug therapy
CPT/HCPCS: 20552; 99283-25; J7512

== ENCOUNTER 2021-08-13 12:12 | Emergency (ER) | payer BC, OTHER ==
[~2021-08-13] VITALS: Ht 165.1 cm; Wt 90.7 kg
[~2021-08-13 12:12] MED LIST changes: +HYDROCODON-ACE1 EA10 PO; +PREDNISONE20 MG PO
[2021-08-13] MEDS ORDERED: CHLORTHALIDONE25 MG PO (12:25)
[2021-08-13] MEDS ORDERED: VENTOLIN HFA18 GM (14:01)
[2021-08-13] MEDS ORDERED: OMEPRAZOLE20 MG PO (14:01)
--- NOTE | 2021-08-13 19:19 | EKG ---
[facility] [address] [facility] [place], [place] [address] Signed Normal sinus rhythm Biatrial enlargement Abnormal ECG When compared with ECG of 21-MAY-2020 01:24, No significant change was found Confirmed by CARL RASHID DO ([id number]) on 08/13/2021 7:19:13 PM Electronically Signed By: CARL RASHID DO 08/13/211918 PATIENT NAME: DEE STEELE Electrocardiogram DATE OF : 65 PHYSICIAN: CARL RASHID DO REPORT #: [id number] REPORT IS CONFIDENTIAL AND NOT TO BE RELEASED WITHOUT AUTHORIZATION
== END 2021-08-13 14:35 | disposition home or self-care (01) ==
LOC: ED 12:12
DX: R00.2 Palpitations (principal); F17.200 Nicotine dependence, unspecified, uncomplicated; Z79.899 Other long term (current) drug therapy
CPT/HCPCS: 93005; 93010; 99284-25

== ENCOUNTER 2024-06-10 11:52 | Emergency (ER) | payer OTHER ==
[~2024-06-10] VITALS: Ht 165.1 cm; Wt 93.0 kg
[~2024-06-10 11:52] MED LIST changes: +ATORVASTATIN CA20 MG PO; +CHLORTHALIDONE25 MG PO; +CIPRO500 MG PO; +FIBER500 MG PO; +LISINOPRIL10 MG PO; +METRONIDAZOLE500 MG PO; +VENTOLIN HFA18 GM
[2024-06-10] MEDS ORDERED: TRAZODONE HCL50 MG PO (12:13)
[2024-06-10] MEDS ORDERED: ondansetron HCL 4 MG/2 ML VIAL IV ONE (12:30)
[2024-06-10 12:40] LABS: RBC 4.76 M/ul (4.3-5.7); RDW 13.7 (10.5-15.0)
[2024-06-10 12:43] LABS: BASOPHILS 0.5 % (0-2); EOSINOPHILS 0.2 % (0-6); HEMATOCRIT 44.2 % (35.0-50.0); HEMOGLOBIN 14.9 g/dL (12.0-18.0); LYMPHOCYTES 18.4 % (24-44); MCH 31.3 (27-36); MCHC 33.7 g/dl (30-36); MCV 92.8 fl (81-99); MONOCYTES 8.4 % (0-12); NEUTROPHILS 72.5 % (39-80); PLATELET COUNT 210 K/uL (140-440)
[2024-06-10 12:57] LABS: ALBUMIN 3.7 g/dL (3.4-5.0); ALBUMIN/GLOBULIN RATIO 0.93 (1.1-2.4); ANION GAP 14.7 (7-21); BILIRUBIN, TOTAL 0.6 ng/dL (0.2-1.0); BUN/CREATININE RATIO 10.95 (6.0-28.6); CALCIUM 9.7 mg/dL (8.5-10.1); CREATININE, SERUM 0.73 mg/dL (0.55-1.02); POTASSIUM 3.7 mmol/L (3.5-5.1); PROTEIN, TOTAL 7.7 g/dL (6.4-8.2)
[2024-06-10 13:02] LABS: BILIRUBIN, URINE NEGATIVE (negative); BLOOD/HGB, URINE TRACE-L (Negative); KETONE, URINE NEGATIVE (Negative); LEUK ESTERASE, URINE NEGATIVE (negative); NITRITE, URINE NEGATIVE (negative)
[2024-06-10 13:12] LABS: BACTERIA, URINE NONE SEEN /hpf (negative); CASTS, URINE NONE SEEN \\lpf; COLLECTION TYPE, URINE CLEAN CATCH; CRYSTALS, URINE NONE SEEN (0-1+); EPITHELIAL CELLS, URINE SQUAMOUS 1+ /lpf (0-1+); RED BLOOD CELLS, URINE 0-1 /hpf (0-5); REFLEX CULTURE, URINE No (No); WHITE BLOOD CELLS, URINE 0-1 /HPF (0-5)
[2024-06-10] MEDS ORDERED: AMOX TR-K CLV1 EAC1 PO (13:20)
[2024-06-10 13:32] VITALS: BP 117/78
== END 2024-06-10 13:32 | disposition home or self-care (01) ==
LOC: ED 11:52
PROVIDERS: Emergency Medicine
DX: K57.32 Diverticulitis of large intestine without perforation or abscess without bleeding (principal); F17.200 Nicotine dependence, unspecified, uncomplicated; Z79.899 Other long term (current) drug therapy
CPT/HCPCS: 36415; 74177; 80053; 81001; 83690; 85025; 99284-25; J2405; Q9967

== ENCOUNTER 2025-09-14 13:06 | Emergency (ER) | payer MEDICARE, OTHER ==
[~2025-09-14] VITALS: Ht 165.1 cm; Wt 94.0 kg
[~2025-09-14 13:06] MED LIST changes: +AMOX TR-K CLV1 EAC1 PO; +TRAZODONE HCL50 MG PO
[2025-09-14] MEDS ORDERED: ASPIRIN 81 MG CHEW PO ONE (13:30)
[2025-09-14 13:40] LABS: BASOPHILS 0.8 % (0.1-1.2); EOSINOPHILS 1.4 % (0.7-5.8); LYMPHOCYTES 22.1 % (19.3-51.7); MCH 31.1 PG (25.6-32.2); MCHC 34.1 g/dL (32.2-35.5); MCV 91.2 fL (79.4-94.8); MONOCYTES 6.5 % (4.7-12.5); NEUTROPHILS 69.0 % (34.0-71.1); RBC 4.79 M/uL (3.93-5.22)
[2025-09-14 13:58] LABS: ALT (SGPT) 19.0 U/L (14-59); AST (SGOT) 12.0 U/L (15-37); GLOMERULAR FILTRATION RATE,EST 103.0 mL/min (>60); PROTEIN, TOTAL 7.3 g/dL (6.4-8.2); UREA NITROGEN 20.0 mg/dL (7-18)
[2025-09-14 16:35] VITALS: BP 106/78
--- NOTE | 2025-09-19 16:06 | EKG ---
[facility] [address] [facility] [place] [address] Signed Sinus rhythm with premature supraventricular complexes and with occasional premature ventricular complexes Nonspecific ST abnormality Abnormal ECG When compared with ECG of 13-AUG-2021 12:34, premature ventricular complexes are now present premature supraventricular complexes are now present Confirmed by Erica Armando MD () on 09/19/2025 4:06:42 PM Electronically Signed By: ERICA ARMANDO MD 09/19/25 1606 PATIENT NAME: DEE STEELE HARSHAL Electrocardiogram DATE OF : 65 PHYSICIAN: ERICA ARMANDO MD REPORT #: [id number] REPORT IS CONFIDENTIAL AND NOT TO BE RELEASED WITHOUT AUTHORIZATION
== END 2025-09-14 16:54 | disposition home or self-care (01) ==
LOC: ED 13:06
DX: I49.3 Ventricular premature depolarization (principal); F17.200 Nicotine dependence, unspecified, uncomplicated; Z88.1 Allergy status to other antibiotic agents
CPT/HCPCS: 36415; 71045; 80053; 83735; 84484; 85025; 93005; 93010; 93246; 99285-25; A9270